=== PATIENT | male | born 1960 | race Caucasian/White ===

== ENCOUNTER → 2017-06-27 | Outpatient (CLI) | payer MEDICARE ==
[2017-06-27 13:57] LABS: HEMOGLOBIN 16.4 g/dL (14.1-18.0); LYMPH # 2.1 K/mm3 (0.7-4.5)
[2017-06-27 15:21] LABS: BUN 17 mg/dL (7-18); PROSTATE-SPECIFIC ANTIGEN F/U 2.1 ng/mL (0.0-4.0)
[2017-06-27 15:38] LABS: GFR (ESTIMATED) 63 ML/MIN (>60)
[2017-06-28 09:38] LABS: Vitamin D, 25-Hydroxy 34.3 ng/mL (30.0-100.0)
[2017-06-29 03:38] LABS: Folate (Folic Acid) 8.2 ng/mL (>3.0)
== END ==
LOC: LAB 13:10
PROVIDERS: Physician Assistant
DX: I10 Essential (primary) hypertension (principal); E11.9 Type 2 diabetes mellitus without complications; E78.2 Mixed hyperlipidemia; E55.9 Vitamin D deficiency, unspecified; Z00.00 Encounter for general adult medical examination without abnormal findings